=== PATIENT | male | born 1975 | race Caucasian/White ===

== ENCOUNTER 2019-01-16 09:46 | Emergency (ER) | payer MEDICAID, OTHER ==
[~2019-01-16] VITALS: Ht 182.9 cm; Wt 107.5 kg
--- NOTE | 2019-01-16 09:51 | NUR ---
CALLED PATIENT, NOT IN THE WAITING ROOM AT [facility].
--- NOTE | 2019-01-16 09:57 | NUR ---
CAME IN FOR SOB X 2 DAYS, "TIGHT FEELING ON THE NECK", TO ER BED 7, HOOKED TO [employer]INE[employer], CHANGED TO GOWN, AWAITING MD HOLDER.
--- NOTE | 2019-01-16 10:07 | NUR ---
DR FUENTES AT BEDSIDE
[2019-01-16] MEDS ORDERED: ASPIRIN 325 MG TABLET ONE (10:16)
[2019-01-16 10:21] LABS: BASOPHILS # (AUTO) 0.4 /CMM (0.0-0.2); BASOPHILS % (AUTO) 3.3 % (0.0-2.0); EOSINOPHILS % (AUTO) 6.2 % (0.0-6.0); HEMATOCRIT 50 % (39-51); HEMOGLOBIN 16.8 g/dL (13.5-17.5); LYMPHOCYTES # (AUTO) 1.4 /CMM (0.8-4.8); LYMPHOCYTES % (AUTO) 13.4 % (20.0-44.0); MEAN CORPUSCULAR HGB CONC 34 g/dl (31.0-36.0); MEAN CORPUSCULAR VOLUME 93 fL (80-96); MONOCYTES # (AUTO) 0.7 /CMM (0.1-1.30); MONOCYTES % (AUTO) 6.5 % (2.0-12.0); NEUTROPHILS # (AUTO) 7.6 /CMM (1.8-8.9); NEUTROPHILS % (AUTO) 70.6 % (43.0-81.0); PLATELET COUNT (AUTO) 274 /CMM (150-450); RED BLOOD CELL COUNT(AUTO) 5.38 MIL/uL (4.5-6.0); WHITE BLOOD COUNT (AUTO) 10.8 K/uL (4.3-11.0)
[2019-01-16 10:29] LABS: CARBON DIOXIDE 30 mmol/L (21-32); CHLORIDE 101 mmol/L (98-107); GLUCOSE 135 mg/dL (74-106); POTASSIUM 4.6 mmol/L (3.5-5.1); SODIUM SERUM 137 mmol/L (136-145); UREA NITROGEN, BLOOD 18 mg/dL (7-18)
[2019-01-16] MEDS ORDERED: IV NS 0.9% 1,000 ML BAG IV ONE (10:30)
[2019-01-16] MEDS ORDERED: ASPIRIN 325 MG TABLET PO ONE (10:30)
[2019-01-16] MEDS ORDERED: TAMS-12 PO (10:45)
[2019-01-16] MEDS ORDERED: AZEL205. BNOSTRILS (10:45)
[2019-01-16] MEDS ORDERED: MELA3TAB63 PO (10:45)
[2019-01-16] MEDS ORDERED: HYDR-3028 PO (10:45)
[2019-01-16] MEDS ORDERED: TRAZ-214 PO (10:45)
[2019-01-16] MEDS ORDERED: OMEP20CA11 PO (10:45)
[2019-01-16] MEDS ORDERED: NALT380S2 IM (10:45)
[2019-01-16] MEDS ORDERED: VENL75CA56 PO (10:45)
[2019-01-16] MEDS ORDERED: NAPR-1009 PO (10:45)
[2019-01-16] MEDS ORDERED: LEVO125T8 PO (10:45)
[2019-01-16] MEDS ORDERED: VITA1TAB56 PO (10:45)
[2019-01-16] MEDS ORDERED: BUDE10.22 INH (10:45)
[2019-01-16] MEDS ORDERED: ARIP675S IM (10:45)
[2019-01-16] MEDS ORDERED: FLUT16SP16 BNOSTRILS (10:45)
[2019-01-16] MEDS ORDERED: PROP20TA19 PO (10:45)
[2019-01-16] MEDS ORDERED: ATOR10TA PO (10:45)
[2019-01-16] MEDS ORDERED: FERR325T23 PO (10:45)
[2019-01-16] MEDS ORDERED: GABA600T12 PO (10:45)
[2019-01-16] MEDS ORDERED: EMPA25TA PO (10:45)
[2019-01-16] MEDS ORDERED: MULT-447 PO (10:45)
[2019-01-16] MEDS ORDERED: LORAZEPAM INJ 2 MG/ML VIAL IV ONE (12:30)
[2019-01-16] MEDS ORDERED: LORAZEPAM INJ 2 MG/ML VIAL ONE (12:33)
[2019-01-16 13:08] VITALS: BP 118/72
== END 2019-01-16 13:08 | disposition home or self-care (01) ==
LOC: ER 09:51
DX: R07.89 Other chest pain (principal); E11.9 Type 2 diabetes mellitus without complications; F17.200 Nicotine dependence, unspecified, uncomplicated; Z60.2 Problems related to living alone; Z79.899 Other long term (current) drug therapy
CPT/HCPCS: 36415; 71045; 80048; 84484; 85025; 93005; 96374; 99284; J2060; J7030 ×2